=== PATIENT | female | born 1975 | race Caucasian/White ===

== ENCOUNTER 2020-03-12 11:22 | Emergency (ER) | payer OTHER ==
[~2020-03-12] VITALS: Ht 144.8 cm; Wt 104.3 kg
[~2020-03-12 11:22] MED LIST: (None)20 M1 PO; AMOX500; ATOR80 PO; AZIT250 PO; Aspir 8181 MG PO; Augmentin 875-1 EACH PO; BENADRYL25 MG PO; BUPR150ER PO; CLIN150 PO; CLOP75 PO; DIPH50 PO; ESCI10 PO; FAMO20 PO; HYDACE5 PO; HYDGUAL120 PO; LISI5 PO; LOSA50 PO; Lopressor 25 mg25 MG PO; METPRE4DP PO; NITR.4SL SL; Norco 5-325 Ta1 EACH PO; PRED10 PO; PRED20 PO; RANI150 PO; VENL37.5 PO; VENL75ER PO; [UNRECOGNIZED DRUG - OTHER] SC
[2020-03-12 13:52] LABS: BASOPHILS ABSOLUTE AUTO 0.08 K/mm3 (0.00-0.23); BASOPHILS PERCENT AUTO 1 % (0-2); EOSINOPHILS ABSOLUTE AUTO 0.13 K/mm3 (0.00-0.68); EOSINOPHILS PERCENT AUTO 1 % (0-6); Hematocrit 48.6 % (33.0-51.0); Hemoglobin 16.6 g/dL (11.5-16.0); IMMATURE GRAN ABSOLUTE AUTO 0.04 K/mm3 (0.00-0.10); IMMATURE GRAN PERCENT AUTO 0 % (0-1); LYMPHOCYTES ABSOLUTE AUTO 3.45 K/mm3 (0.84-5.20); LYMPHOCYTES PERCENT AUTO 25 % (21-46); MONOCYTES ABSOLUTE AUTO 0.77 K/mm3 (0.16-1.47); MONOCYTES PERCENT AUTO 6 % (4-13); Mean Corpuscular HGB 30.8 pg (26.0-34.0); Mean Corpuscular HGB Conc 34.2 g/dL (31.5-36.5); Mean Corpuscular Volume 90 fL (80-100); Mean Platelet Volume 11.4 fL (9.1-12.4); NEUTROPHILS ABSOLUTE AUTO 9.33 K/mm3 (1.96-9.15); NEUTROPHILS PERCENT AUTO 68 % (41-73); Platelet Count 329 K/mm3 (150-400); RDW Standard Deviation 42.5 fL (35.1-46.3); Red Blood Cell Count 5.39 M/mm3 (3.80-5.20)
[2020-03-12 14:22] LABS: Alanine Aminotransfer (ALT/SGP 33 U/L (12-78); Albumin, Blood 3.1 g/dL (3.4-5.0); Albumin/Globulin Ratio 0.8 (0.8-1.8); Alk Phos 125 U/L (50-136); Anion Gap 8 mmol/L (6-16); Aspartate Aminotrans (AST/SGOT 18 U/L (12-37); Bilirubin, Total 0.3 mg/dL (0.1-1.0); Blood Urea Nitrogen 8 mg/dL (8-24); Bun/Creatinine Ratio 18.4 (12.0-20.0); CO2, Blood 27 mmol/L (21-32); Chloride, Blood 104 mmol/L (98-108); Creatinine, Blood 0.43 mg/dL (0.40-1.00); Globulin, Blood 4.1 g/dL (2.2-4.0); Glomerular Filtration Rate >60 (60-); Glucose, Blood 174 mg/dL (70-99); Potassium, Blood 3.8 mmol/L (3.5-5.5); Sodium, Blood 139 mmol/L (136-145); Total Protein, Blood 7.2 g/dL (6.4-8.2); Troponin I <0.015 ng/mL (0.000-0.040)
== END 2020-03-12 15:35 | disposition short-term general hospital (02) ==
LOC: ER 11:22
PROVIDERS: Emergency Medicine
DX: I60.9 Nontraumatic subarachnoid hemorrhage, unspecified (principal); I10 Essential (primary) hypertension; F32.9 Major depressive disorder, single episode, unspecified; F17.210 Nicotine dependence, cigarettes, uncomplicated; Z86.73 Personal history of transient ischemic attack (TIA), and cerebral infarction without residual deficits; Z95.5 Presence of coronary angioplasty implant and graft; Z91.013 Allergy to seafood; Z91.010 Allergy to peanuts; Z88.5 Allergy status to narcotic agent; Z88.8 Allergy status to other drugs, medicaments and biological substances; Z88.0 Allergy status to penicillin; Z91.030 Bee allergy status; Z91.018 Allergy to other foods; Z79.899 Other long term (current) drug therapy; Z79.82 Long term (current) use of aspirin; Z79.02 Long term (current) use of antithrombotics/antiplatelets; Z20.828 Contact with and (suspected) exposure to other viral communicable diseases
CPT/HCPCS: 70450; 80053; 84484; 85025; 93005; 93010; 96361; 96374; 96375; 96376; 99291-25; 99292; J0360; J1170; J1953; J2405; J2550; J7050; J7120; U0002

== ENCOUNTER 2020-07-19 18:55 | Inpatient (IN) | payer OTHER ==
[~2020-07-19] VITALS: Ht 152.4 cm; Wt 111.6 kg
[2020-07-19] MEDS ORDERED: POTCHL20ER PO (19:11)
[2020-07-19 19:31] LABS: BASOPHILS PERCENT AUTO 0 % (0-2); EOSINOPHILS ABSOLUTE AUTO 0.06 K/mm3 (0.00-0.68); EOSINOPHILS PERCENT AUTO 0 % (0-6); Hematocrit 48.1 % (33.0-51.0); Hemoglobin 16.3 g/dL (11.5-16.0); IMMATURE GRAN ABSOLUTE AUTO 0.14 K/mm3 (0.00-0.10); IMMATURE GRAN PERCENT AUTO 1 % (0-1); LYMPHOCYTES ABSOLUTE AUTO 2.88 K/mm3 (0.84-5.20); LYMPHOCYTES PERCENT AUTO 12 % (21-46); MONOCYTES ABSOLUTE AUTO 1.44 K/mm3 (0.16-1.47); MONOCYTES PERCENT AUTO 6 % (4-13); Mean Corpuscular HGB 30.1 pg (26.0-34.0); Mean Corpuscular HGB Conc 33.9 g/dL (31.5-36.5); Mean Corpuscular Volume 89 fL (80-100); Mean Platelet Volume 10.7 fL (9.1-12.4); NEUTROPHILS ABSOLUTE AUTO 19.19 K/mm3 (1.96-9.15); NEUTROPHILS PERCENT AUTO 81 % (41-73); Platelet Count 367 K/mm3 (150-400); RDW Coefficient Variation 12.9 % (11.7-14.2); Red Blood Cell Count 5.41 M/mm3 (3.80-5.20); White Blood Cell Count 23.81 K/mm3 (4.00-11.30)
[2020-07-19 19:51] LABS: Alanine Aminotransfer (ALT/SGP 52 U/L (12-78); Albumin, Blood 3.1 g/dL (3.4-5.0); Albumin/Globulin Ratio 0.7 (0.8-1.8); Alk Phos 117 U/L (50-136); Anion Gap 11 mmol/L (6-16); Aspartate Aminotrans (AST/SGOT 97 U/L (12-37); Bilirubin, Total 0.3 mg/dL (0.1-1.0); Blood Urea Nitrogen 10 mg/dL (8-24); Bun/Creatinine Ratio 20.1 (12.0-20.0); CO2, Blood 22 mmol/L (21-32); Calcium, Blood 9.5 mg/dL (8.5-10.1); Chloride, Blood 103 mmol/L (98-108); Globulin, Blood 4.4 g/dL (2.2-4.0); Glomerular Filtration Rate >60 (60-); Glucose, Blood 219 mg/dL (70-99); Potassium, Blood 4.2 mmol/L (3.5-5.5); Sodium, Blood 136 mmol/L (136-145); Total Protein, Blood 7.5 g/dL (6.4-8.2)
[2020-07-19 20:34] LABS: International Normalized Ratio 0.96; Prothrombin Time Results 10.3 Sec (9.7-11.5)
[2020-07-19] MEDS ORDERED: METO25 PO (20:52)
--- NOTE | 2020-07-19 22:45 | NUR ---
Admission from ED to ICU-13 Patient arrived to ICU-13 at 2105 via gurney, accompanied by ED nurse. Patient drowsy, but A/O X 4, states location/event/date correctly. Patient states having upper back (5/10) and chest pain (8/10), on Nitro gtt at 5 mcg/min. Pt hypertensive (217/136), heart rate 110-120's NSR, Tachypnea (30's) and on 2 L via NC, Spo2 > 90%. Nitro gtt increase to keep SBP < 160 and chest pain in tolerable range. Pt has occasional wheezing and crackles in the bases. Pt has traces of edema in upper and lower extrems. Pt asked for daughter to be called and updated on pt status. Also, recieved call from Shoaib (pts ex-) and Soraida (pts friend), updated on pt status all questions answered. Pt would like all three family members updated and ok to recieve report. Pt does not want information given to Serena (Ex-husbands girlfriend). Pt able to use bedpan, urine yellow/clear with foul oder. Pt able to turn and change position without assitance.
--- NOTE | 2020-07-20 00:45 | NUR ---
Update Dr. Perez in to see patient earlier and recieved order to keep SBP <160. Recieved orders for Hydralazine 10 mg IV PRN SBP > [address] pt on BIPAP/CPAP. Pt prefers being on BIPAP vs. CPAP. Hydralazine had good effect on keeping pts SBP < 160. Pt states CP has decreased to 3/10 with Nitro gtt at 40 mcg/min. Upper back pain is 8/10, treated with Nitro and Fentanyl with good effect. Pt on Bipap 14/8, Fio2 40% , spo2 > 90%. Pt continues to be drowsy but easily awakens and A/O X 4.
[2020-07-20 03:42] LABS: BASOPHILS ABSOLUTE AUTO 0.08 K/mm3 (0.00-0.23); BASOPHILS PERCENT AUTO 1 % (0-2); EOSINOPHILS PERCENT AUTO 1 % (0-6); Hematocrit 42.1 % (33.0-51.0); Hemoglobin 14.3 g/dL (11.5-16.0); IMMATURE GRAN ABSOLUTE AUTO 0.08 K/mm3 (0.00-0.10); IMMATURE GRAN PERCENT AUTO 1 % (0-1); LYMPHOCYTES ABSOLUTE AUTO 3.96 K/mm3 (0.84-5.20); LYMPHOCYTES PERCENT AUTO 23 % (21-46); MONOCYTES ABSOLUTE AUTO 1.32 K/mm3 (0.16-1.47); MONOCYTES PERCENT AUTO 8 % (4-13); Mean Corpuscular HGB 30.3 pg (26.0-34.0); Mean Corpuscular Volume 89 fL (80-100); Mean Platelet Volume 10.6 fL (9.1-12.4); NEUTROPHILS ABSOLUTE AUTO 11.64 K/mm3 (1.96-9.15); NEUTROPHILS PERCENT AUTO 68 % (41-73); Platelet Count 337 K/mm3 (150-400); RDW Standard Deviation 42.5 fL (35.1-46.3); Red Blood Cell Count 4.72 M/mm3 (3.80-5.20); White Blood Cell Count 17.18 K/mm3 (4.00-11.30)
[2020-07-20 04:05] LABS: Alanine Aminotransfer (ALT/SGP 55 U/L (12-78); Albumin, Blood 2.8 g/dL (3.4-5.0); Albumin/Globulin Ratio 0.7 (0.8-1.8); Alk Phos 100 U/L (50-136); Anion Gap 6 mmol/L (6-16); Aspartate Aminotrans (AST/SGOT 230 U/L (12-37); Bilirubin, Total 0.4 mg/dL (0.1-1.0); Blood Urea Nitrogen 8 mg/dL (8-24); Bun/Creatinine Ratio 16.7 (12.0-20.0); CO2, Blood 31 mmol/L (21-32); Chloride, Blood 103 mmol/L (98-108); Creatinine, Blood 0.48 mg/dL (0.40-1.00); Globulin, Blood 3.8 g/dL (2.2-4.0); Glomerular Filtration Rate >60 (60-); Glucose, Blood 157 mg/dL (70-99); Potassium, Blood 3.4 mmol/L (3.5-5.5); Sodium, Blood 140 mmol/L (136-145); Total Protein, Blood 6.6 g/dL (6.4-8.2)
[2020-07-20 04:52] LABS: Troponin I 24.6 ng/mL (0.000-0.040)
--- NOTE | 2020-07-20 05:07 | NUR ---
UPDATE SPOKE TO DR. MOORE IN REGARDS TO PTS K OF 3.4. RECIEVED ORDERS FOR 40 MEW OF KCL IV X 1. PT ON BIPAP, 23/02, FIO2 40%. TOLERATING WELL. NITRO GTT 40 MCG/MIN. HEPARIN DOSE ADJUSTED PER PHARMACY TO 15 U/KG/HR AND BOLUS OF 3,700 GIVEN, SEE EMAR. PT CONTINUES TO BE DROWSY BUT EASILY AWAKENS. CP AND UPPER BACK PAIN HAS DECREASED TO 3/10.
[2020-07-20 05:12] LABS: Creatine Kinase MB 271.5 ng/mL (0.0-3.6); Creatine Kinase MB Index 11.3 (0.0-4.0)
--- NOTE | 2020-07-20 07:21 | NUR ---
Shift Summary PT ON BIPAP 23/02, FIO2 40%, SPO2 > 95%. NITRGO GTT 45 MCG/MIN, HEPARIN GTT 15 U/KG/HR. PTS CP AND BACK PN HAS DECREASED TO 3/10. NITRO TITERATED TO KEEP SBP <160, SEE FLOW SHEET AND VITAL SIGNS. PT CONTINUES TO BE A/O X 4. SKIN APPEARS FLUSHED AND DIAPHORTIC/CLAMMY COMPARED TO MIDNIGHT ASSESSMENT. TROP OF 24.[address] MOORE, CARDIOLOGY CONSULTED. WILL REPORT TO ONCOMING SHIFT.
--- NOTE | 2020-07-20 08:46 | NUR ---
CARE ASSUMED CARE AND REPORT ASSUMED FROM ELAINE ALONZO. PT IN BED WITH HOB ELEVATED. WEARING BIPAP 14/8, 40% AT START OF SHIFT. PT COMPLAINED OF NAUSEA AND STATED SHE WAS GOING TO VOMIT. BIPAP REMOVED, 4L NC APPLIED, AND ZOFRAN 4 MG IVP GIVEN. NAUSEA HAS SINCE RESOLVED. A/O X3, PT IS DROWSY UNTIL STIMULATED VERBALLY. DOES QUICKLY BECOME UPSET WHEN AWAKE. C/O CHEST PAIN /10. NITRO GTT INFUSING AT 45 MCG. HEPARIN GTT INFUSING AT 15 UNITS/HR. LUNG SOUNDS CLEAR IN UPPER LOBES, CRACKLES IN MIDDLE AND BASES. POTASSIUM REPLACEMENT INFUSING. PT COVID NEGATIVE PER RAPID FROM ED; SEE CHART. ECHO COMPLETED THIS AM. PT GIVEN LASIX AND HAVING FREQUENT VOIDS; MOSTLY UNMEASURABLE DUE TO PT SOILING BED. NPO EXCEPT SIPS WITH MEDS. AWAITING EMPLOYMENT PROGRAM REPRESENTATIVE. WILL CONTINUE TO MONTIOR.
[2020-07-20 09:01] LABS: U Amphetamine Screen DETECTED; U Barbituate Screen Not Detected; U Benzodiazapine Screen Not Detected; U Buprenorphine Screen Not Detected; U Cannabinoids Screen Not Detected; U Cocaine Screen Not Detected; U Methadone Screen Not Detected; U Methamphetamine Screen DETECTED; U Opiates Screen Not Detected; U Oxycodone Screen Not Detected; U Phencyclidine Screen Not Detected; U Propoxyphene Screen Not Detected
--- NOTE | 2020-07-20 09:34 | NUR ---
PT UPDATE... ASSUMED CARE OF PT FROM CHERI GIMENEZ AT APROX 0900. PT IS ON A NITRO GTT RUNNING AT 45MCG/MIN AND HEPARIN GTT RUNNING AT 15U/KG/HR PER ORDERS. VS STABLE AT THIS TIME. PT HAS BEEN ON THE BEDPAN 2 TIMES IN 30MINS VOIDING 500MLS EACH TIME. AT 0932 VISUAL EDUCATION DIRECTOR STAFF IN THE ROOM TO TAKE THE PT FOR HER ANGIO. PT DENIES ANY CHEST PAIN AT THIS TIME. NITRO GTT AND HEPARIN GTT WAS STOPPED PER VISUAL EDUCATION DIRECTOR STAFF.
--- NOTE | 2020-07-20 11:59 | NUR ---
Echocardiogram completed.
[2020-07-20 12:12] LABS: Troponin I 33.1 ng/mL (0.000-0.040)
[2020-07-20 12:29] LABS: Creatine Kinase MB 241.2 ng/mL (0.0-3.6); Creatine Kinase MB Index 10.6 (0.0-4.0)
--- NOTE | 2020-07-20 13:37 | NUR ---
ADMIT: 07/20/20 DISCHARGE: DX: STEMI, Resp failure CC: ESTEFANY CALL: RESIDENCE: home CAREGIVER: JOSE PEARL (PARENT) DX: CAD, HTN, angioedema, hyperlipidemia, see list DME: blood pressure kit, nebulizer CCM: Referral- 02/14/20 HOME HEALTH: none SUMMARY: Admit: 07/20/20 07/20/20- Per chart review with Dr. Atwood, pt has no est ETA for d/c at this time. -kjw 1. A 45-year-old female, coming in with acute hypoxic respiratory failure, currently off BiPAP, due to acute pulmonary edema and acute congestive heart failure exacerbation of unknown type. Last 2D echo from 2017 showed good ejection fraction. 2. Acute coronary artery syndrome, non ST elevation MS. 3. Hypertensive emergency. 4. Intermittent methamphetamine use. 5. Hyperglycemia. 6. Lactic acidemia in the setting of respiratory distress, hypertensive emergency, SIRS. 7. No overt evidence of sepsis or infection at this time. 8. Obesity. 9. History of anaphylaxis. 10. PTSD. 11. Hyperlipidemia. PLAN: 1. Continue nitroglycerin drip for blood pressure titration. 2. IV hydralazine p.r.n. 3. Diureses. 4. CPAP/BiPAP as tolerated. 5. Aspirin Plavix load. 6. Continue heparin, statins. 7. Check urine toxicology. Check A1c and blood sugar coverage. 8. Cardiology consultation in the morning. 9. Expect greater than 2 days inpatient. 10. Full code status. 11. Heparin drip will serve as her DVT prophylaxis. 12. N.p.o. status for now.
--- NOTE | 2020-07-20 14:46 | NUR ---
PT UPDATE... PT RETURNED FROM THE [employer] [employer] APROX 1100, PT IS SLEEPY BUT ROUSABLE. VS STABLE AT THIS TIME, TR BAND IN PLACE WITH 12MLS IN THE BAND, NO SWELLING, BLEEDING OR HEMATOMA NOTED. ALL OF THE AIR WAS REMOVED FROM THE TR BAND AT 1400. NO BLEEDING SWELLING OR HEMATOMA NOTED. PT'S SBP HAS BEEN >161-200, SHE WAS MEDICATED PER EMAR WITH 10MG IV HYDRALAZINE THIS HELPED BRING HER SBP TO THE 150'S FOR A SHORT TIME, HOWEVER HER SBP CONTINUED TO INCREASE BACK TO >160'S. DR. COLIN WAS CALLED AND ORDERS WERE OBTAINED FOR NEW PO MEDICATIONS COREG 12.5MG AND LISINOPRIL 10MG. PER DR. COLIN HE WANTS THE HEPARIN GTT RESTARTED ONCE THE TR BAND HAS BEEN RECOVERED, THEN HE WANTS THE HEPARIN GTT TO CONTINUE UNTIL THURSDAY MORNING. ONCE THE HEPARIN GTT IS STOPPED HE WANTS LOVONOX STARTED PER DVT PREVENTION PROTOCOL. DR. COLIN WANTED THE NITRO GTT DC'D AND IF THE PT HAS CHEST PAIN AGAIN TO START HER ON 10MG IMUDUR DAILY. WILL CONTINUE TO MONITOR.
--- NOTE | 2020-07-20 18:25 | NUR ---
SHIFT SUMMARY... PT HAS SLEPT MOST OF THIS SHIFT ESPECIALLY SINCE [facility]ING [facility]. PT WAKES EASILY AND HAS USED THE BEDPAN SEVERAL TIMES THIS AFTERNOON. PT DENIES ANY CHEST PAIN AT THIS TIME, THE TR BAND WAS REMOVED AT 1400 AND HEPARIN GTT RESTARTED PER PHARMACY AT 15UNITS/KG/HR. PT'S DAUGHTER AT THE BEDSIDE AND UPDATED ON PT'S CONDITION AND PLAN OF CARE. PER DR. COLIN IF THE PT STARTS TO HAVE CHEST PAIN TO START HER ON IMDUR 10MG DAILY. CALL LIGHT IN REACH WILL CONTINUE TO MONITOR UNTIL REPORT IS GIVEN TO ONCOMING RN.
--- NOTE | 2020-07-20 19:15 | NUR ---
ASSUMED CARE REPORT RECEIVED BEDSIDE FROM RENURN; PT A&O X 4; STATES SHE IS TIRED; VSS; DENIES CHEST PAIN; R RADIAL SITE C/D/I W/ TEGADERM IN PLACE, ARM BOARD IN PLACE; HEP GTT @ 15 U/KG/HR; NO DISTRESS NOTED; CALL LIGHT IN REACH; BED IN LOWEST POSITION.
[2020-07-21 04:02] LABS: CHOL/HDL RATIO 6.2; Cholesterol 199 mg/dL (50-200); HDL Cholesterol 32 mg/dL (>39); LDL/HDL RATIO 3.4; Low Density Lipoprotein Chol 107 mg/dL (0-110); Triglycerides 299 mg/dL (30-160); Very Low Density Lipoprot Chol 59 mg/dL (6-32)
--- NOTE | 2020-07-21 05:43 | NUR ---
SHIFT SUMMARY PT A&O X 3-4; DENIES CHEST PAIN; VSS; SINUS TACH NOTED ON MONITOR W/ HR 105; O2 SATS >93 ON 4L NC; BIPAP IN PLACE A FEW HOURS; 14/8 FIO2 30%; HEP GTT @ 19 U/KG/HR, ADJUSTED PER PHARMACY; ASSISTED PT W/ PHONE CALL TO FAMILY; ENCOURAGED PO FLUIDS & SNACKS; CALL LIGHT IN REACH; BED IN LOWEST POSITION; WILL CONTINUE TO MONITOR CLOSELY UNTIL HAND OFF TO DAY SHIFT RN.
--- NOTE | 2020-07-21 07:40 | NUR ---
ASSUMED CARE: REPORT RECEIVED FROM OLENA Mc RN. ASSUMED CARE OF THIS PT AT APPROX 0700. ON ASSESSMENT, THE PT AWAKENS TO VERBAL STIMULUS & IS ALERT/ ORIENTED AT THAT TIME. SHE STS FEELING "VERY TIRED" & QUICKLY RESUMES SLEEPING. PT ON 3L NC W/ O2 SATS > 92%. DOES NOT USE O2 AT HOME. MONITOR SHOWS ST W/ HR 110s, BP STABLE. PT STS FEELING HUNGRY BUT DOES NOT STAY AWAKE LONG ENOUGH FOR PO INTAKE. VOIDS FREQUENTLY R/T DIURESIS, ATTENDS IN PLACE FOR OCCASIONAL INCONTINENCE. R RADIAL PUNCTURE SITE WNL, NO BLEEDING, BRUISING OR HEMATOMA FORMATION NOTED. TEGADERM DRESSING CDI & WRIST IMMOBILIZER IN PLACE. WILL CONTINUE TO MONITOR & UPDATE NEEDED.
--- NOTE | 2020-07-21 14:30 | NUR ---
TRANSFER TO PCU: REPORT HAS BEEN GIVEN TO TOSHIA Mc RN TO ASSUME CARE OF THIS PT. CHART, MEDS & ALL BELONGINGS HAVE BEEN TAKEN OVER W/ PT AT TIME OF TX. HEPARIN CONTINUES INFUSING. PT TX VIA BED TO PCU-04 BY LILLIE LOVETT.
--- NOTE | 2020-07-21 14:49 | NUR ---
ASSUMED CARE PT IS SLEEPY BUT SHE WILL WAKE TO VERBAL STIMULI, ANSWERING QUESTIONS APPROPRIATLY, VSS, RESP UNLABORED, SPO2 94% ON 4 L VIA NC, HEPARIN GTT INFUSING @ 21 UNITS/KG/HR. PT IS AKING FOR FOOD & DRINKS, SHE IS TOO TIRED TO HOLD THE CUP HERSELF AND IS ASKING FOR ASSISTANCE, PT'S DAUGHTER IS AT THE BEDSIDE. CALL LIGHT IN REACH, BED IN LOW POSITION, BED ALARM ON FOR SAFETY.
--- NOTE | 2020-07-21 18:35 | NUR ---
SUMMARY PT REMAINS SLEEPY, CONTINUES TO WAKE TO STIMULI, VSS, RESP UNLABORED. PT WAS ABLE TO EAT A FEW BITES OF A SANDWICH & DRANK SOME APPLE JUICE BUT THEN WENT RIGHT BACK TO SLEEP. SHE HAS REFUSED HER DINNER. SPO2 >93% ON 4 L O2 VIA NC, HEP GTT INFUSING AT PREVIOUS RATE, NO ACUTE CHANGES NOTED SINCE ADMISSION TO THE ROOM. CALL LIGHT IN REACH, TM.
--- NOTE | 2020-07-22 11:19 | NUR ---
SUMMARY: ADMIT: 07/20/20 07/22/20- PER CHART REVIEW WITH DR. STAFFORD, PT HAS BEEN MOVED FROM ICU TO PCU. SHE HAS NOT EST ETA FOR D/C AT THIS TIME. -TERRY
--- NOTE | 2020-07-22 12:12 | NUR ---
PHYSICIAN NOTIFIED UPDATED ON PT'S CONDITION. PT CONTINUES TO BE SLEEPY/LETHARGIC TODAY. SHE WILL WAKE UP TO VERBAL STIMULI & ANSWER QUESTIONS, SHE IS DIOPHORETIC/CLAMMY, PT DENIES CP/PRESSURE, CONTINUES TO BE SINUS TACH 100-115, RESP UNLABORED 22-28, BP 95/55, TEMP 97.6. PT HAS BEEN INCONTINENT OF URINE A FEW TIMES THIS AM & STATES THIS IS NOT HER "NORM". SHE WAS ABLE TO EAT A SMALL AMOUNT FOR BREAKFAST BUT WITH SUPERVISION DUE TO RISK FOR ASPIRATION. PT/OT WILL BE ORDERED PER TELEPHONE ORDER, NO OTHER ORDERS GIVEN AT THIS TIME, [facility]. CALL LIGHT IN REACH, BED ALARM FOR SAFETY.
--- NOTE | 2020-07-22 12:30 | NUR ---
AMBULATION PT ASSISTED TO THE BATHROOM & ENC TO PARTICIPATE IN PERSONAL CARE. SHE ATTEMPTED TO REFUSE AND WANTED TO "JUST SLEEP" BUT SHE DID GET OOB AND ATTEMPTED TO TRY. PT WASHED HER FACE,BRUSHED HER TEETH & CHANGED HER GOWN. PT WAS ALSO ENC TO SIT IN A BEDSIDE CHAIR FOR A MINIMUN OF 20 MINUTES. SHE WAS ABLE TO HANDLE APPROX 10 BEFORE CALLING TO GET BACK IN BED. PT REMAINS ON 4 L O2 VIA NC, NO CP OR RESP DISTRESS NOTED DURING ACTIVITY. BED ALARM IS ON FOR SAFETY, CALL LIGHT IN REACH, WCTM.
--- NOTE | 2020-07-22 17:39 | NUR ---
SHIFT SUMMARY PT CONTINUES TO BE SLEEPY BUT IS STARTING TO WAKE EASIER THIS AFTERNOON. SHE HAS BEEN WALKING TO THE BATHROOM INSTEAD OF USING THE BSC & SHE AGREED TO SIT IN A CHAIR AT THE BEDSIDE TO EAT DINNER. PO INTAKE HAS INCREASED FROM YESTERDAY BUT FLUID INTAKE REMAINS POOR. PT IS REFUSING TO SPEAK WITH FAMILY TODAY, SHE ALSO REFUSED TO HAVE INFORMATION GIVEN TO THEM ABOUT HER CONDITION, THIS WAS RESPECTED. SHE HAS BEEN COOPERATIVE W/CARE WHEN SHE IS ABLE TO STAY AWAKE. PT HAS C/O INTERMITTENT HEADACHE, DENIES CP/SOB. PT/OT EVAL HAS BEEN ORDERED. NO OTHER ACUTE CHANGES NOTED. SHE IS CURRENTLY SITTING IN THE CHAIR AT THE BEDSIDE EATING DINNER, CALL LIGHT IN REACH, PT ENC TO CALL FOR ASSISTANCE BEFORE GETTING BACK IN BED FOR SAFETY PURPOSES. WCRAND & REPORT TO KAMILAH ALONZO.
--- NOTE | 2020-07-22 19:15 | NUR ---
ASSUMED CARE RECEIVED REPORT. PT RESTING IN BED, APPEARS TO BE SLEEPING. NO ACUTE DISTRESS OBSERVED. O2 @2LPM VIA N/C. WILL CONTINUE TO MONITOR
--- NOTE | 2020-07-23 06:49 | NUR ---
PT A&Ox3, APPROPRIATE THROUGH SHIFT. MORE ALERT TONIGHT, NOT LETHARGIC. PT STATES SHE HAS A DIFFICULT TIME BREATHING, MARZENA WITH EXERTION. O2@2LPM VIA NC WITH SATS IN MID 90'S. TELE SINUS TACH IN 100s. DENIED CHEST PAIN. STAND BY ASSIST TO BSC SEVERAL TIMES, VOIDING CLEAR YELLOW URINE
--- NOTE | 2020-07-23 08:00 | NUR ---
ASSUMED CARE PT EASILY AWAKENED THIS AM, SHE IS A&O X4, VSS, ON 2 L O2 VIA NC, DENIES SOB OR ANY CP/PRESSURE THROUGH THE NIGHT. LUNG SOUNDS DIMINISHED, DB&C ENC, INCENTIVE SPIROMETER EDUCATION PROVIDED. PT SITTING UP IN BED EATING BREAKFAST, APPETITE IMPROVING. WCTM, CALL LIGHT IN REACH, BED IN LOW POSITION.
--- NOTE | 2020-07-23 11:37 | NUR ---
07/23/20- SPOKE BRIEFLY WITH PT SINCE OT WAS WAITING TO WORK WITH PT. PT STATED THAT SHE DOES HAVE A RIDE HOME WITH JOSE WHEN SHE DISCHARGES. JOSE IS A FAMILY MEMBER THAT CAN HELP WITH GETTING MEDICATIONS AT THE PHARMACY. INFORMED PT THAT D/C ORDERS HAVE NOT BE PLACED THAT SHE WILL NEED TO WORK WITH OT AND SPEECH PRIOR TO DISCHARGE. BRIEFLY REVIEWED THE ESTEFANY LETTER WITH THE PATIENT. OT THERAPIST CAME INTO THE ROOM AFTER TO WORK WITH THE PATIENT. -TERRY
--- NOTE | 2020-07-23 14:18 | NUR ---
TRANSFER PT WILL BE TRANSFERRED TO ROOM 328 ON MEDICAL FLOOR. REPORT CALLED TO RN. PT HAS BEEN A&O X4. PT WORKED WITH PHYSICAL THERAPY THIS AM, SHE HAS BEEN INDEPENDENT IN THE ROOM, ON ROOM AIR, VSS, SHE WAS ABLE TO SHOWER, TOLERATING PO INTAKE, CONTINUES TO DENY CP/PRESSURE. INCENTIVE SPIROMETER AND BELONGINGS SENT EITH PT.
--- NOTE | 2020-07-23 14:40 | NUR ---
Transfer from PCU to [place] [id number] Received report from H[facility] PCU-RN. Patient arrived to unit via w/c, on RA. Dyspneic with exertion, patient states fearful when feeling short of breath. O2 supplement @ 2L PRN via NC. Denies pain. A/Ox4, settled to room. Bed in lowest position. Call light nearby. Tele in place.
--- NOTE | 2020-07-23 16:41 | NUR ---
Shift Summary A/Ox4, pleasant and cooperative. Reports anxiety d/t shortness of breath and dyspnea with exertion. 2L O2 per NC PRN while ambulatory. Tele: Sinus Tach 102. Denies any pain, nausea, vomiting. Up independently to bathroom. Calls appropriately. Opsite to R wrist c/d/i. No acute changes since transferred to unit. Will continue to monitor.
--- NOTE | 2020-07-23 17:41 | NUR ---
ATIVAN Placed patient on RA and checked sats approximately 20 minutes later. Patient called using call light stating "I can't breathe!" and very anxious and fearful. Sats checked, found to be 97% on RA. Lungs auscultated and sounds good, moving air. Called Dr. Schwartz, received T.O. for Ativan Q8H PRN for panic attacks 1 mg. Order updated.
--- NOTE | 2020-07-23 22:48 | NUR ---
CODE CALLED PT WAS HEARD GROANING SO I ENTERED THE ROOM AT APPROX 2147 TO SEE THE PT SITTING UP AT THE SIDE OF THE BED. I APPROACHED THE PT ASKING WHAT IS HURTING SHE APPEARED IN PAIN, PT THEN ROCKED BACK BECOMING STIFF W HER HEAD ARCHED ALL THE WAY BACK. CHARGE NURSE ENTERED THE ROOM AT THIS TIME I INSTRUCTED SYNTHETIC SOIL BLOCKS PULPER TO CALL THE CODE. PT BECAME PURPLE, NO PULSE FOUND SO I BEGAN CPR. CODE TEAM ARRIVED AND TOOK OVER. PRIOR TO THIS EVENT PT WAS NOT IN ANY DISTRESS AND WAS SLEEPING SHORTLY AFTER I ASSUMED CARE.
== END 2020-07-23 22:20 ==
LOC: ER 18:55 → ICUW 20:44 → PCU 07-21 14:20 → MEDS 07-23 14:36
PROVIDERS: Emergency Medicine; Internal Medicine; Pharmacist; ADMIT Internal Medicine
PROC: 5A09357 Assistance with Respiratory Ventilation, Less than 24 Consecutive Hours, Continuous Positive Airway Pressure (ICD-10-PCS; principal; 2020-07-19)
PROC: 4A023N7 Measurement of Cardiac Sampling and Pressure, Left Heart, Percutaneous Approach (ICD-10-PCS; 2020-07-20)
PROC: B2111ZZ Fluoroscopy of Multiple Coronary Arteries using Low Osmolar Contrast (ICD-10-PCS; 2020-07-20)
PROC: 0BH18EZ Insertion of Endotracheal Airway into Trachea, Via Natural or Artificial Opening Endoscopic (ICD-10-PCS; 2020-07-23)
DX: I97.190 Other postprocedural cardiac functional disturbances following cardiac surgery (principal); J96.01 Acute respiratory failure with hypoxia; I21.A9 Other myocardial infarction type; I50.31 Acute diastolic (congestive) heart failure; T82.855A Stenosis of coronary artery stent, initial encounter; E87.2 Acidosis; I16.1 Hypertensive emergency; Z68.42 Body mass index [BMI] 45.0-49.9, adult; I25.10 Atherosclerotic heart disease of native coronary artery without angina pectoris; F17.210 Nicotine dependence, cigarettes, uncomplicated; Z79.82 Long term (current) use of aspirin; Z86.73 Personal history of transient ischemic attack (TIA), and cerebral infarction without residual deficits; E66.9 Obesity, unspecified; E78.5 Hyperlipidemia, unspecified; E78.1 Pure hyperglyceridemia; F15.10 Other stimulant abuse, uncomplicated; Z20.822 Contact with and (suspected) exposure to COVID-19; I11.0 Hypertensive heart disease with heart failure; I50.9 Heart failure, unspecified; Z66 Do not resuscitate
CPT/HCPCS: 36415; 71045; 71260; 76937; 80053; 80061; 82550; 82553; 82947; 83036; 83605; 83880; 84484; 85025; 85610; 85730; 87040; 93005; 93010; 93306; 93458; 94640; 94660; 96365; 96375; 96376; 97110; 97162; 97165; 97530; 99285-25; A9270; C1769; C1894; J0360; J0456; J0696; J1644; J1650; J1940; J2250; J2405; J3010; J3480; J7030; J7040; J7050; Q9967